=== PATIENT | male | born 1935 | race Caucasian/White ===

== ENCOUNTER → 2019-05-31 08:02 | Day surgery (SDC) | payer MEDICARE ==
--- NOTE | 2019-05-26 08:20 | HP ---
CC: Dr. Lokesh Mitchell, [facility] * ADMITTING HISTORY AND PHYSICAL: DATE OF ADMISSION: 05/31/19 ADMITTING DIAGNOSES: 1. Bladder tumor. 2. History of prostate cancer. PLANNED PROCEDURE: Cystoscopy, transurethral resection of bladder tumor. SURGEON: Dr. Aggarwal. HISTORY OF PRESENT ILLNESS: Obi Mathew is an 83-year-old gentleman who is a former smoker and who was recently evaluated on office cystoscopy and was noted to have 3 to 4 cm tumor in the left lateral wall of the bladder. His past urologic history is significant also for prostate cancer which has been currently controlled with Lupron androgen deprivation therapy. PAST MEDICAL HISTORY: Significant for: 1. Prostate cancer. 2. Diabetes mellitus type 2. 3. Hypertension. 4. Hyperlipidemia. 5. COPD (requiring supplemental oxygen). 6. Obesity. 7. History of lumbar radiculopathy. 8. Obstructive sleep apnea. MEDICATIONS ON ADMISSION: Include: 1. Lupron injection every 4 months for prostate cancer. 2. Albuterol inhaler 2 puffs 4 times a day. 3. Amlodipine 10 mg daily. 4. Chlorthalidone 50 mg daily. 5. Fexofenadine 180 mg daily for allergies. 6. Glipizide 10 mg twice a day. 7. Insulin as directed. 8. Lisinopril 40 mg daily. 9. Metformin 1000 mg twice a day. 10. Pravastatin 20 mg daily. 11. Terazosin 6 mg daily. 12. Aspirin 81 mg daily. ALLERGIES AND INTOLERANCES: PENICILLIN and ATENOLOL. FAMILY HISTORY: Negative for bladder or prostate cancer. SOCIAL HISTORY: Smoking history: He is a former smoker, who quit 30 years ago and has a fairly extensive 30 plus pack year smoking history prior to that. REVIEW OF SYSTEMS: He has as expected shortness of breath due to his COPD and requires the use of oxygen. He denies any chest pain. PHYSICAL EXAMINATION GENERAL: Reveals a pleasant, elderly gentleman. VITAL SIGNS: Blood pressure is 128/80, pulse 86 per minute, oxygen saturation is 93%, temperature 97. LUNGS: Clear bilaterally. CARDIOVASCULAR: Regular rate and rhythm. S1, S2. ABDOMEN: Soft without masses. IMPRESSION: An 83-year-old former smoker who has findings of what appears to be a bladder tumor on office cystoscopy. PLAN: Planned procedure is cystoscopy, transurethral resection of bladder tumor. [id number]/[facility] #: [id number] [facility]
[~2019-05-31 08:02] MED LIST: Buffered Lidocaine 1% SYRIN* 1 ML/SYRINGE INTRADERM ONE; Famotidine IV* 10 MG/ML 2 ML (20 mg) IV ONE; Famotidine IV* 10 MG/ML 2 ML (20 mg) ONE; Insulin LISPRO* 1 UNITS UNIT SUBCUT ONE; KETAMINE HCL* 50 MG/ML 10 ML VIAL ONE; LR IV SCH; Lactated Ringers 1000 ML Bag* 1,000 ML IV SCH; Levofloxacin 500 MG IVPREMIX(* 500 MG/100 ML BAG IVPB ONE; Lidocaine 2% JELLY* 6 ML JELLY TOPICAL SCH; Metoclopramide IV* 5 MG/ML 2 ML VIAL IV SLOW PU ONE; Metoclopramide IV* 5 MG/ML 2 ML VIAL ONE; Midazolam* 1 MG/ML 5 ML VIAL (5 MG) ONE; mitoMYcin PWD* 40 MG in Sterile Water for Inj* 40 ML IRRIGATION ONE; oxyCODONE/Acetamin 5/325 MG* TAB PO PRN
--- NOTE | 2019-05-31 11:53 | OP ---
CC: Dr. Lokesh Mitchell, [facility] * DATE OF OPERATION: 05/31/19 - [facility] DATE OF : 39 SURGEON: Lorenzo Aggarwal MD ANESTHESIOLOGIST: Dr. Shane. ANESTHESIA: Spinal. PRE-OP DIAGNOSES: 1. Hematuria. 2. Bladder tumor. POST-OP DIAGNOSES: 1. Hematuria. 2. Bladder tumor. OPERATIVE PROCEDURES: Cystoscopy, transurethral resection, and fulguration of bladder tumor (2 to 3 cm). COMPLICATIONS: None. ESTIMATED BLOOD LOSS: Minimal. OPERATIVE FINDINGS: 1. Moderately enlarged prostate. 2. 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 DESCRIPTION OF PROCEDURE: After induction of spinal anesthesia, the patient was placed in dorsal lithotomy position. Sequential compression devices were in place and functioning. Initial cystoscopy revealed a normal-appearing urethra and moderately enlarged obstructing prostate. The bladder was examined. In the left lateral wall close to the bladder neck at the 3 o'clock position, there was a 2 to 3 cm papillary superficial-appearing bladder tumor. Using the resectoscope, the tumor was completely resected down to muscle. Hemostasis was secured using the coagulating current. At the end of the procedure, there was no remaining visible tumor and there was no evidence of bladder perforation. A 22-Yemeni English was placed for temporary bladder drainage. The patient tolerated the procedure satisfactorily and was transferred back to the recovery area in stable condition. [id number]/[id number] #: [id number] [facility]
[2019-05-31 13:57] VITALS: BP 137/80
== END | disposition home or self-care (01) ==
LOC: OR 08:02
PROVIDERS: ATTEND Urology
DX: C67.2 Malignant neoplasm of lateral wall of bladder (principal); R31.9 Hematuria, unspecified; C61 Malignant neoplasm of prostate; Z87.891 Personal history of nicotine dependence; E11.9 Type 2 diabetes mellitus without complications; Z79.4 Long term (current) use of insulin; Z79.84 Long term (current) use of oral hypoglycemic drugs; G47.33 Obstructive sleep apnea (adult) (pediatric); J44.9 Chronic obstructive pulmonary disease, unspecified; Z99.81 Dependence on supplemental oxygen
CPT/HCPCS: 88305; J1815; J1956; J2250; J2765; J9280